=== PATIENT | male | born 1995 | race American Indian/Alaskan Native ===

== ENCOUNTER 2020-01-26 14:06 | Emergency (ER) | payer MEDICAID, OTHER ==
--- NOTE | 2020-01-26 14:16 | EDM.PDOC ---
ED HPI GENERAL MEDICAL PROBLEM - General Stated Complaint: BOIL Time Seen by Provider: 01/26/20 14:16 Source of Information: Reports: Patient, RN, RN Notes Reviewed History Limitations: Reports: No Limitations - History of Present Illness INITIAL COMMENTS - FREE TEXT/NARRATIVE: Presents to ER with complaint of boil on his left buttock that he noticed began 2 days ago. Patient states that is progressively gotten worse, and is very painful at this time. Patient states he has had fever and chills from time to time. Patient denies history of MRSA. Onset: Gradual - Related Data Allergies Allergy/AdvReac Type Severity Reaction Status Date / Time No Known Allergies Allergy Verified 01/26/20 14:10 Home Meds: Home Meds . [No Known Home Meds] 01/26/20 [History] Past Medical History Respiratory History: Reports: Asthma Musculoskeletal History: Reports: Fracture - Past Surgical History Respiratory Surgical History: Reports: None Musculoskeletal Surgical History: Reports: ORIF Social & Family History - Family History Family Medical History: Noncontributory ED ROS GENERAL - Review of Systems Review Of Systems: Comprehensive ROS is negative, except as noted in HPI. ED EXAM, SKIN/RASH Exam: See Below Exam Limited By: No Limitations General Appearance: Alert, WD/WN, Mild Distress Eye Exam: Bilateral Eye: EOMI, Normal Inspection Ears: Normal External Exam, Hearing Grossly Normal Nose: Normal Inspection Throat/Mouth: Normal Inspection, Normal Voice, No Airway Compromise Head: Atraumatic, Normocephalic Neck: Normal Inspection, Supple, Non-Tender, Full Range of Motion Respiratory/Chest: No Respiratory Distress, Lungs Clear, Normal Breath Sounds, No Accessory Muscle Use, Chest Non-Tender Cardiovascular: Normal Peripheral Pulses, Regular Rate, Rhythm, No Edema, No Gallop, No JVD, No Murmur, No Rub Peripheral Pulses: 2+: Radial (L), Radial (R) GI/Abdominal: Normal Bowel Sounds, Soft, Non-Tender (Male) Exam: Deferred Rectal (Males) Exam: Deferred Back Exam: Normal Inspection, Full Range of Motion, NT Extremities: Normal Inspection, Normal Range of Motion, Non-Tender, No Pedal Edema, Normal Capillary Refill Neurological: Alert, Oriented, CN II-XII Intact, Normal Cognition, Normal Gait, Normal Reflexes, No Motor/Sensory Deficits Psychiatric: Normal Affect, Normal Mood, Anxious, Tearful Skin: Warm, Dry, Normal Color, Erythema, Increased Warmth, Wound/Incision (3cm x 4cm abscess to the left buttock with pustule in the center) Location, Skin: Other (buttock) Characteristics: Erythematous Associated features: Warmth, Tenderness, Swelling, Induration, Inflammation, Weeping Lymphatic: No Adenopathy ED SKIN PROCEDURES - I&D Site: left buttock Skin Prep: Chlorhexidine (Hibiciens) Local Anesthesia: Lidocaine: 1% Plain Local Anesthetic Volume: 3cc Area Incised With: Needle (18g) Drainage: Purulent, Bloody, Moderate Amount Probed to Break Up Loculations: Yes Packed With: None Sterile Dressinx4(s) Complications: No Course - Vital Signs Last Recorded V/S: Last Vital Signs Temp 96.9 F 01/26/20 14:08 Pulse 99 01/26/20 14:08 Resp 16 01/26/20 14:08 BP 151/83 H 01/26/20 14:08 Pulse Ox 97 01/26/20 14:08 - Orders/Labs/Meds Orders: Active Orders 24 hr Category Date Time Status CULTURE WOUND [RM] Urgent Lab 01/26/20 15:03 Ordered Meds: Medications Discontinued Medications Generic Name Dose Route Start Last Admin Trade Name Racheal PRN Reason Stop Dose Admin Bacitracin 1 dose 01/26/20 14:32 01/26/20 14:58 Bacitracin Oint 1 Gm TOP 01/26/20 14:33 1 dose ONETIME ONE Administration Lidocaine HCl 30 ml 01/26/20 14:32 01/26/20 14:58 Xylocaine-Mpf 1% INJECT 01/26/20 14:33 3 ml ONETIME ONE Administration Departure - Departure Time of Disposition: 15:00 Disposition: Home, Self-Care 01 Condition: Fair Clinical Impression: Abscess - Discharge Information *PRESCRIPTION DRUG MONITORING PROGRAM REVIEWED*: No *COPY OF PRESCRIPTION DRUG MONITORING REPORT IN PATIENT RONALD: No Instructions: Skin Abscess, [id number] Forms: ED Department Discharge Additional Instructions: May use warm compresses as tolerated May use Tylenol and/or Ibuprofen as directed for pain RX: Clindamycin until gone Follow up with your primary care facility if any worsening of symptoms Sepsis Event Note - Focused Exam Vital Signs: Vital Signs Temp Pulse Resp BP Pulse Ox 01/26/20 14:08 96.9 F 99 16 151/83 H 97 Date Exam was Performed: 01/26/20 Time Exam was Performed: 15:03 - My Orders Last 24 Hours: My Active Orders 01/26/20 15:03 CULTURE WOUND [RM] Urgent - Assessment/Plan Last 24 Hours: My Active Orders 01/26/20 15:03 CULTURE WOUND [RM] Urgent
[2020-01-26 14:25] VITALS: BP 151/83; PULSE 99
[2020-01-26] MEDS ORDERED: Lidocaine 1% 30 ML SDV INJECT ONE (14:32)
[2020-01-26] MEDS ORDERED: Bacitracin Oint 1 GM U/D Packet TOP ONE (14:32)
== END 2020-01-26 15:05 | disposition home or self-care (01) ==
LOC: DL.ED 14:06
DX: L02.31 Cutaneous abscess of buttock (principal); J45.909 Unspecified asthma, uncomplicated
CPT/HCPCS: 10060; 87070; 87077; 87186; 99283-25; J2001